=== PATIENT | female | born 1985 | race Caucasian/White ===

== ENCOUNTER 2017-05-04 17:45 | Inpatient (IN) | payer OTHER ==
[2017-05-04 20:14] LABS: RETICULOCYTES 2.09 % (0.5-1.5)
[2017-05-04 20:15] LABS: BASO % 0.3 % (0-2.0); EOS % 0.9 % (0-4.5); HEMATOCRIT 33.6 % (32.4-45.2); HEMOGLOBIN 11.6 GM/dL (10.7-15.3); LYMPH % 14.4 % (8-40); MCH 27.9 pg (25.7-33.7); MCHC 34.6 g/dl (32.0-36.0); MEAN CELL VOLUME 80.6 fl (80-96); MEAN PLT VOLUME 11.2 fl (7.5-11.1); MONO % 9.5 % (3.8-10.2); NEUT % 74.9 % (42.8-82.8); PLATELET COUNT 165 K/MM3 (134-434); RBC 4.16 M/mm3 (3.60-5.2); RDW 14.9 % (11.6-15.6); WHITE BLOOD COUNT 9.4 K/mm3 (4.0-10.0)
[2017-05-04 20:27] LABS: URINE APPEARANCE CLEAR; URINE BILIRUBIN NEGATIVE (<2.0 mg/dL); URINE BLOOD NEGATIVE (NEGATIVE); URINE COLOR YELLOW; URINE GLUCOSE (UA) NEGATIVE (NEGATIVE); URINE KETONE NEGATIVE (NEGATIVE); URINE LEUK ESTERASE NEGATIVE (NEGATIVE); URINE NITRITE NEGATIVE (NEGATIVE); URINE UROBILINOGEN NEGATIVE mg/dL (0.2-1.0)
[2017-05-04 20:28] LABS: URINE PROTEIN 2+ (NEGATIVE)
[2017-05-04 20:37] LABS: INR 0.93 (0.82-1.09); PROTHROMBIN TIME (PATIENT) 10.5 SEC (9.98-11.88)
[2017-05-04 20:40] LABS: ACTIVATED PTT 27.5 SECONDS (26.9-34.4)
[2017-05-04 20:48] LABS: EPI CELLS RARE /HPF (FEW); URINE HYALINE CAST 1 /lpf; URINE MUCUS RARE
[2017-05-04 21:00] LABS: ALBUMIN 2.9 g/dl (3.4-5.0); ALK PHOS 183 U/L (45-117); ANION GAP 10 (8-16); BILIRUBIN,TOTAL 0.2 mg/dL (0.2-1.0); BLOOD UREA NITROGEN 12 mg/dL (7-18); CALCIUM 8.4 mg/dL (8.5-10.1); CHLORIDE 108 mmol/L (98-107); CO2 21 mmol/L (21-32); CREATININE 0.3 mg/dL (0.55-1.02); GAMMA GLUTAMYL TRANSPEPTIDASE 46 U/L (5-85); GLUCOSE,RANDOM 80 mg/dL (74-106); SGOT/AST 94 U/L (15-37); SGPT/ALT 64 U/L (12-78); SODIUM 139 mmol/L (136-145); TOT PROT 6.9 g/dl (6.4-8.2)
[2017-05-04 22:08] VITALS: BMI 45.1
[2017-05-04] MEDS ORDERED: BUTORPHANOL TARTRATE 1 MG/ML VIAL IVPUSH PRN (22:12)
[2017-05-04] MEDS ORDERED: DINOPROSTONE 10 MG VAGINAL SUPPOSITORY VG ONE (22:12)
[2017-05-04] MEDS ORDERED: PROMETHAZINE HCL 25 MG/1 ML VIAL IVPUSH ONE (22:12)
--- NOTE | 2017-05-04 22:18 | HP ---
Past Medical History - Primary Care Physician PCP:: Timmy Reyes - Admission Chief Complaint: 37 weeks, PIH , for cervidil induction History of Present Illness: 31 yo f edc by sono 05/20/17 , 37,5 weeks, with 2+ protein in urine and elevated LFT , bp 125/68, admitted for cervidil induction, cx 1 to 2 cm, 50 vx - 2 mi, fhr cat 1,, rba to induction discussed with patient History Source: Patient Limitations to Obtaining History: No Limitations - Past Medical History ...: 2 ...Para: 1 ...Term: 1 ...: 1 ...Spon : 0 ...Induced : 0 ...Multiple Gestation: 0 ...LMP: 08/13/16 ... Weeks Gestation by Dates: 37.5 ...EDC by Dates: 05/20/17 ...EDC by Sono: 05/20/17 - Past Surgical History Hx Myomectomy: No Hx Transabdominal Cerclage: No - Smoking History Smoking history: Never smoked Have you smoked in the past 12 months: No - Alcohol/Substance Use Hx Alcohol Use: No - Social History Usual Living Arrangement: Yes: With Spouse History of Recent Travel: No Home Medications - Allergies Allergies/Adverse Reactions: Allergies Allergy/AdvReac Type Severity Reaction Status Date / Time No Known Allergies Allergy Verified 05/04/17 18:21 - Home Medications Home Medications: Ambulatory Orders Ferrous Sulfate [Iron] 325 mg PO DAILY 05/04/17 Pnv No.95/Ferrous Fum/Folic AC [ Multivitamin Tablet] 1 each PO DAILY Review of Systems - Review of Systems Constitutional: reports: No Symptoms Eyes: reports: No Symptoms HENT: reports: No Symptoms Neck: reports: No Symptoms Cardiovascular: reports: No Symptoms Respiratory: reports: No Symptoms Gastrointestinal: reports: No Symptoms Genitourinary: reports: No Symptoms Breasts: reports: No Symptoms Reported Musculoskeletal: reports: No Symptoms Integumentary: reports: No Symptoms Neurological: reports: No Symptoms Endocrine: reports: No Symptoms Hematology/Lymphatic: reports: No Symptoms Psychiatric: reports: No Symptoms Physical Exam - Maternity Vital Signs: Vital Signs Temperature 99.0 F 05/04/17 21:30 Pulse Rate 88 05/04/17 21:30 Respiratory Rate 18 05/04/17 21:30 Blood Pressure 124/77 05/04/17 21:30 O2 Sat by Pulse Oximetry (%) Constitutional: Yes: Well Nourished, No Distress, Calm Eyes: Yes: WNL, Conjunctiva Clear, EOM Intact HENT: Yes: WNL, Atraumatic, Normocephalic Neck: Yes: WNL, Supple, Trachea Midline Cardiovascular: Yes: WNL, Regular Rate and Rhythm Breast(s): Yes: WNL - Abdominal Exam/OB Fundal Height: 38 Number of Fetuses: Single Presentation: Vertex Contractions: No Intensity: Unaware Monitor Mode: External Heart Rate Location: [facility] Category: I Accelerations: Uniform Decelerations: None - Vaginal Exam/OB Vaginal Bleediing: No Speculum Exam: No Dilatation (cm): 2 cm Effacement (%): 50 Amniotic Membrane Status: Intact Presentation: Vertex/Position Station: -2 - Physical Exam Musculoskeletal: Yes: Back Pain Edema: Yes Edema: LLE: 1+, RLE: 1+ Deep Tendon Reflex Grade: Normal +2 - Labs Lab Results: CBC, BMP 05/04/17 19:30 05/04/17 19:30 Hemorrhage Risk Assessment - Risk Factors Medium Risk Factors: Yes: None High Risk Factors: Yes: None Risk Score: 1 Risk Level: Medium Risk Problem List - Problems (1) with 37 weeks completed gestation Code(s): Z3A.37 - 37 WEEKS GESTATION OF (2) induced hypertension Code(s): O13.9 - GESTATIONAL HTN W/O SIGNIFICANT PROTEINURIA, UNSP TRIMESTER Qualifiers: Trimester: third trimester Qualified Code(s): O13.3 - Gestational [ -induced] hypertension without significant proteinuria, third trimester (3) HELLP (hemolytic anemia/elev liver enzymes/low platelets in ) Code(s): O14.20 - HELLP SYNDROME (HELLP), UNSPECIFIED TRIMESTER Qualifiers: Trimester: third trimester Qualified Code(s): O14.23 - HELLP syndrome ( HELLP), third trimester Assessment/Plan admit for cervidil induction, rba discussed
[2017-05-05] MEDS ORDERED: AMPICILLIN SODIUM 2 GM VIAL ONE (05:45)
[2017-05-05] MEDS: DEXTROSE 5%-LACTATED RINGERS 1,000 ML IV SCH ×2 (06:00→14:35)
[2017-05-05] MEDS ORDERED: AMPICILLIN - 2 GM in SODIUM CHLORIDE 100 ML IVPB ONE (06:00)
--- NOTE | 2017-05-05 07:52 | PN ---
Progress Note (short form) - Note Progress Note: cx 3 cm 70 vx -2 mi, fhr cat 1, no headache, no blurred vision Last Vital Signs Temp Pulse Resp BP Pulse Ox 98.2 F 85 20 118/78 05/05/17 06:00 05/05/17 07:00 05/05/17 07:00 05/05/17 07:00 Problem List - Problems (1) with 37 weeks completed gestation Code(s): Z3A.37 - 37 WEEKS GESTATION OF (2) induced hypertension Code(s): O13.9 - GESTATIONAL HTN W/O SIGNIFICANT PROTEINURIA, UNSP TRIMESTER Qualifiers: Trimester: third trimester Qualified Code(s): O13.3 - Gestational [ -induced] hypertension without significant proteinuria, third trimester (3) HELLP (hemolytic anemia/elev liver enzymes/low platelets in ) Code(s): O14.20 - HELLP SYNDROME (HELLP), UNSPECIFIED TRIMESTER Qualifiers: Trimester: third trimester Qualified Code(s): O14.23 - HELLP syndrome ( HELLP), third trimester
[2017-05-05] MEDS: AMPICILLIN - 1 GM in SODIUM CHLORIDE 100 ML IVPB SCH ×4 (10:00→22:08)
[2017-05-05] MEDS ORDERED: OXYTOCIN 20 UNITS in 0.9% NS 20 UNIT/1,000 ML INFUS.BAG IV ONE (11:13)
[2017-05-05] MEDS ORDERED: OXYTOCIN 30 UNITS in 0.9% NS 30 UNIT/500 ML INFUS.BAG IVPB SCH (12:20)
--- NOTE | 2017-05-05 15:10 | PN ---
Progress Note (short form) - Note Progress Note: cx 3 to 4 cm 70 vx -2 mr, fhr cat 1 Last Vital Signs Temp Pulse Resp BP Pulse Ox 98.7 F 87 20 124/69 05/05/17 12:00 05/05/17 13:00 05/05/17 13:00 05/05/17 13:00 plan cont pitocin, ,fhm Problem List - Problems (1) with 37 weeks completed gestation Code(s): Z3A.37 - 37 WEEKS GESTATION OF (2) induced hypertension Code(s): O13.9 - GESTATIONAL HTN W/O SIGNIFICANT PROTEINURIA, UNSP TRIMESTER Qualifiers: Trimester: third trimester Qualified Code(s): O13.3 - Gestational [ -induced] hypertension without significant proteinuria, third trimester (3) HELLP (hemolytic anemia/elev liver enzymes/low platelets in ) Code(s): O14.20 - HELLP SYNDROME (HELLP), UNSPECIFIED TRIMESTER Qualifiers: Trimester: third trimester Qualified Code(s): O14.23 - HELLP syndrome ( HELLP), third trimester
--- NOTE | 2017-05-05 19:13 | PN ---
Progress Note (short form) - Note Progress Note: Patient transferred for labor management by Dr Reyes to Dr jimenez . 31 yrs 37.6 weeks s/p 12 hrs of Cervidil induction followed by Pitocin induction, started at 12.20 PM , Arom at 12.00 Noon Pitocin 6miu/min Indication for induction : Preclempsia , urine protein 2+, Liver Enz elevated , AST 94, ALT 64, , Plt 165. BP wnl . 04/27/17 sono SLIUP Vx, GARRETT 11.0, EFW6'13", BPP 8/8 Gbs pos , receiving IV Ampicillin prophylaxis uc are still mild irregular 3-5 min , FHR 150-160 cat-1 pelvic exam: 3-4 cm/75%/MR/vX -1 /pelvis adequate . Morbidly Obese , 247 Lbs , BMI 45.[address] pitocin induction stadol + phenrgan prn for labor analgesia ct trial of labor Selected Entries 05/05/17 18:00 Temperature 98.2 F Pulse Rate 82 Blood Pressure 113/71 Laboratory Tests 05/04/17 05/04/17 05/04/17 19:30 19:30 19:30 WBC 9.4 Hgb 11.6 Hct 33.6 Plt Count 159 Neutrophils % 74.9 Lymphocytes % 14.4 Retic Count 2.09 H PT with INR INR PTT (Actin FS) Sodium 139 Potassium 4.0 Chloride 108 H Carbon Dioxide 21 BUN 12 Creatinine 0.3 L Random Glucose 80 Calcium 8.4 L Total Bilirubin 0.2 GGT 46 AST 94 H ALT 64 Urine Protein RPR Titer Blood Type Antibody Screen 05/04/17 05/04/17 05/04/17 19:30 19:30 19:30 WBC Hgb Hct Plt Count Neutrophils % Lymphocytes % Retic Count PT with INR 10.50 INR 0.93 PTT (Actin FS) 27.5 Sodium Potassium Chloride Carbon Dioxide BUN Creatinine Random Glucose Calcium Total Bilirubin GGT AST ALT Urine Protein RPR Titer Nonreactive Blood Type O POSITIVE Antibody Screen Negative 05/04/17 20:10 WBC Hgb Hct Plt Count Neutrophils % Lymphocytes % Retic Count PT with INR INR PTT (Actin FS) Sodium Potassium Chloride Carbon Dioxide BUN Creatinine Random Glucose Calcium Total Bilirubin GGT AST ALT Urine Protein 2+ H RPR Titer Blood Type Antibody Screen
[2017-05-05] MEDS ORDERED: BUTORPHANOL TARTRATE 1 MG/ML VIAL ONE ×2 (21:56)
[2017-05-05] MEDS ORDERED: PROMETHAZINE HCL 25 MG/1 ML VIAL ONE (21:56)
[2017-05-05] MEDS ORDERED: BUTORPHANOL TARTRATE 1 MG/ML VIAL IVPUSH PRN (21:58)
--- NOTE | 2017-05-05 22:02 | PN ---
Progress Note, Labor Vaginal Exam #1 Labor Exam Date: 05/05/17 Labor Exam Time: 21:50 Heart Rate (range): 130 Dilatation: 6-7 Effacement (%): 90 Amniotic Membrane Status: Ruptured Presentation: Vertex/Position Station: 0 Remarks: fhr cat-1 uc 2-4 min requests for pain meds rx iv stadol 2mg + phenrgan 25 mg Selected Entries 05/05/17 22:00 Temperature 98.9 F Pulse Rate 89 Blood Pressure 131/73 Vaginal Exam #2 Labor Exam Date: 05/05/17 Labor Exam Time: 23:00 Heart Rate (range): 130 Dilatation: 10 Effacement (%): 100 Amniotic Membrane Status: Ruptured Presentation: Vertex/Position Station: +3 Remarks: fhr cat-1 uc q2 min pt pushing 23.08 hr
[2017-05-05] MEDS ORDERED: AMPICILLIN SODIUM 1 GM VIAL ONE (22:04)
[2017-05-05] MEDS ORDERED: oxyCODONE HCL 5 MG TABLET PO PRN (23:33)
[2017-05-05] MEDS ORDERED: METHYLERGONOVINE MALEATE 0.2 MG/1 ML AMP IM PRN (23:33)
[2017-05-05] MEDS ORDERED: BISACODYL 10 MG SUPP.RECT RC PRN (23:33)
[2017-05-05] MEDS ORDERED: WITCH HAZEL 50% (TUCKS) 40 PAD/JAR PAD TP PRN (23:33)
[2017-05-05] MEDS ORDERED: BENZOCAINE 28 GM HEMORRHOIDAL OINTMENT TP PRN (23:33)
[2017-05-05] MEDS ORDERED: IBUPROFEN 600 MG TABLET (FP) PO PRN (23:33)
[2017-05-05] MEDS ORDERED: ACETAMINOPHEN 325 MG TABLET (FP) PO PRN (23:33)
[2017-05-05] MEDS ORDERED: BENZOCAINE 20% 57 GM BOTTLE TP PRN (23:33)
--- NOTE | 2017-05-05 23:33 | PN ---
Delivery - Delivery Vaginal Delivery: No Problems, Spontaneous (baby deivered in OA position, immediate oral & nasal suction was done ..perineum intact) Episiotomy/Laceration: None EBL (cc): 300 Delivery, Single - Stages of Labor Date 1st Stage Initiatied: 05/05/17 Time 1st Stage Initiated: 12:00 Date 2nd Stage Initiated: 05/05/17 Time 2nd Stage Initiated: 23:00 Date of Delivery: 05/05/17 Time of Delivery: 23:08 Date Placenta Delivered: 05/05/17 Time Placenta Delivered: 23:12 Placenta: Yes: Spontaneous, Uterine Exploration - Condition of Infant Infant Gender: Female Weight: 7 lb Position: Left, OA Total Hours ROM (Hrs/Mins): 96kby80 min - 1 Minute Total Score: 9 5 Minutes Total Score: 9 - Atkins Feeding Plan Initial Plan: Elected not to breastfeed exclusively throughout hospitalization Remarks - Remarks Remarks: 31 yrs , 37.6 weeks admitted for induction of labor , due to preclempsia ( urine protein 2+ & elevated Liver enz ) by Dr Reyes gbs pos rx Iv Ampicillin x5 doses cervidil induction on 05/04/17 followed by pitocin induction on 05/05/17 stadol 2gm + phenrgan 25 mg iv one dose for labor analgesia was given Intrapartum course uneventful
[2017-05-05] MEDS ORDERED: OXYTOCIN 20 UNITS in 0.9% NS 20 UNIT/1,000 ML INFUS.BAG IV SCH (23:45)
[2017-05-06] MEDS ORDERED: OXYTOCIN 20 UNITS in 0.9% NS 20 UNIT/1,000 ML INFUS.BAG IV ONE (00:14)
[2017-05-06] MEDS: AMPICILLIN - 1 GM in SODIUM CHLORIDE 100 ML IVPB SCH (02:28)
--- NOTE | 2017-05-06 07:31 | PN ---
Post Progress Note - Subjective Subjective: c/o cramps tired Post Day: 1 Type of Delivery: Vital Signs: Vital Signs Temperature 99.0 F 05/06/17 06:00 Pulse Rate 82 05/06/17 06:00 Respiratory Rate 20 05/06/17 06:00 Blood Pressure 116/67 05/06/17 06:00 O2 Sat by Pulse Oximetry (%) 100 05/06/17 00:00 Breast Exam: Yes: Soft, Other (plans to BF ). No: Engorged Uterus: Yes: Fundus Firm, Fundus below umbilicus Lochia: Yes: Rubra Lochia, amount: Moderate Extremities: Yes: Calves non-tender, Edema (1+/1+) Perineum: Yes: Intact Activity: Ambulating - Labs Labs: CBC WBC 9.4 K/mm3 (4.0-10.0) 05/04/17 19:30 RBC 4.16 M/mm3 (3.60-5.2) 05/04/17 19:30 Hgb 11.6 GM/dL (10.7-15.3) 05/04/17 19:30 Hct 33.6 % (32.4-45.2) 05/04/17 19:30 MCV 80.6 fl (80-96) 05/04/17 19:30 MCH 27.9 pg (25.7-33.7) 05/04/17 19:30 MCHC 34.6 g/dl (32.0-36.0) 05/04/17 19:30 RDW 14.9 % (11.6-15.6) 05/04/17 19:30 Plt Count 165 K/MM3 (134-434) 05/04/17 19:30 MPV 11.2 fl (7.5-11.1) H 05/04/17 19:30 Neutrophils % 74.9 % (42.8-82.8) 05/04/17 19:30 Lymphocytes % 14.4 % (8-40) 05/04/17 19:30 Monocytes % 9.5 % (3.8-10.2) 05/04/17 19:30 Eosinophils % 0.9 % (0-4.5) 05/04/17 19:30 Basophils % 0.3 % (0-2.0) 05/04/17 19:30 Retic Count 2.09 % (0.5-1.5) H 05/04/17 19:30 Assessment/Plan stable. plan repeat cbc & urine protein today
[2017-05-06 07:53] LABS: BASO % 0.3 % (0-2.0); EOS % 0.2 % (0-4.5); HEMATOCRIT 32.8 % (32.4-45.2); HEMOGLOBIN 11.1 GM/dL (10.7-15.3); MCH 27.3 pg (25.7-33.7); MCHC 33.9 g/dl (32.0-36.0); MEAN CELL VOLUME 80.7 fl (80-96); MEAN PLT VOLUME 10.5 fl (7.5-11.1); MONO % 9.9 % (3.8-10.2); NEUT % 72.6 % (42.8-82.8); PLATELET COUNT 158 K/MM3 (134-434); RBC 4.07 M/mm3 (3.60-5.2); RDW 15.1 % (11.6-15.6); WHITE BLOOD COUNT 10.4 K/mm3 (4.0-10.0)
[2017-05-06] MEDS: FERROUS SO4 325 MG TABLET (FP) PO SCH ×2 (09:01→18:08)
[2017-05-06] MEDS: PRENATAL VITAMINS W/ FOLIC ACID TABLET (FP) PO SCH (09:01)
[2017-05-06] MEDS ORDERED: DIPHTH,PERTUSS(ACELL),TET 0.5 ML DISP.SYRIN IM ONE (10:00)
[2017-05-06 14:39] LABS: RATIO URIN PROTEIN/URIN CREAT 0.45 MG/DL
[2017-05-06] MEDS ORDERED: SENNOSIDES/DOCUSATE COMBO (SENNA PLUS) TABLET (UD) PO PRN (22:00)
[2017-05-07 08:10] VITALS: BP 115/74; PULSE 79; TEMP 98.3
[2017-05-07] MEDS: FERROUS SO4 325 MG TABLET (FP) PO SCH (09:48)
[2017-05-07] MEDS: PRENATAL VITAMINS W/ FOLIC ACID TABLET (FP) PO SCH (09:49)
--- NOTE | 2017-05-07 09:59 | DS ---
Physical Exam-MEMBER SERVICE REPRESENTATIVE Vital Signs: Vital Signs Temperature 98.3 F 05/07/17 08:09 Pulse Rate 79 05/07/17 08:09 Respiratory Rate 18 05/07/17 08:09 Blood Pressure 115/74 05/07/17 08:09 O2 Sat by Pulse Oximetry (%) 100 05/06/17 00:00 Constitutional: Yes: Well Nourished, Obese, Other (no c/o headache or dizziness) Eyes: Yes: WNL HENT: Yes: WNL, Normocephalic Neck: Yes: WNL Cardiovascular: Yes: WNL, Regular Rate and Rhythm Respiratory: Yes: WNL, CTA Bilaterally Gastrointestinal: Yes: WNL ...Rectal Exam: Yes: WNL Renal/: Yes: WNL Pelvis: Yes: WNL ....Post : Yes: Uterus firm, Uterus non-tender, Moderate lochia rubra ( perineum intact) Breast(s): Yes: WNL (attempting BF) Musculoskeletal: Yes: WNL Extremities: Yes: WNL. No: Calf Tenderness Edema: Yes Edema: LLE: 1+, RLE: 1+ Integumentary: Yes: WNL Neurological: Yes: WNL, Alert, Oriented ...Motor Strength: WNL Psychiatric: Yes: WNL, Alert, Oriented Labs: CBC, BMP 05/06/17 07:00 05/04/17 19:30 Laboratory Tests 05/04/17 05/06/17 20:10 13:14 Urine Protein 2+ H U Random Total Protein 111 H Urine Creatinine 244.0 Protein/Creatinin Ratio 0.45 Delivery - Delivery Vaginal Delivery: No Problems, Spontaneous (baby deivered in OA position, immediate oral & nasal suction was done ..perineum intact) Type of Anesthesia: None Episiotomy/Laceration: None EBL (cc): 300 Delivery, Single - Stages of Labor Date 1st Stage Initiatied: 05/05/17 Time 1st Stage Initiated: 12:00 Date 2nd Stage Initiated: 05/05/17 Time 2nd Stage Initiated: 23:00 Date of Delivery: 05/05/17 Time of Delivery: 23:08 Time Placenta Delivered: 23:12 Placenta: Yes: Spontaneous, Uterine Exploration - Condition of Curve Cleaner/Pumper Gauger Apprentice Present: No Infant Gender: Female Weight: 7 lb Position: Left, OA Total Hours ROM (Hrs/Mins): 75ycx97 min - 1 Minute Total Score: 9 5 Minutes Total Score: 9 - Feeding Plan Initial Plan: Elected not to breastfeed exclusively throughout hospitalization Remarks - Remarks Remarks: 31 yrs , 37.6 weeks admitted for induction of labor , due to preclempsia ( urine protein 2+ & elevated Liver enz ) by Dr Reyes gbs pos rx Iv Ampicillin x5 doses cervidil induction on 05/04/17 followed by pitocin induction on 05/05/17 stadol 2gm + phenrgan 25 mg iv one dose for labor analgesia was given Intrapartum course uneventful pp course uneventful discharge 05/07/17 Discharge Summary Reason For Visit: ADMIT LABOR Current Active Problems HELLP (hemolytic anemia/elev liver enzymes/low platelets in ) (Acute) induced hypertension (Acute) with 37 weeks completed gestation (Acute) - Instructions Referrals: Carlotta Chan MD [Staff Physician] - - Home Medications Comprehensive Discharge Medication List: Ambulatory Orders Ferrous Sulfate [Iron] 325 mg PO DAILY 05/04/17 Pnv No.95/Ferrous Fum/Folic AC [ Multivitamin Tablet] 1 each PO DAILY
== END 2017-05-07 12:20 | disposition home or self-care (01) | DRG 560 ==
LOC: JDEL 17:45 → JLDR 21:30 → J3W 05-06 01:57
PROVIDERS: ADMIT Obstetrics & Gynecology; ATTEND Obstetrics & Gynecology
PROC: 10E0XZZ Delivery of Products of Conception, External Approach (ICD-10-PCS; principal; 2017-05-05)
DX: O13.4 Gestational [pregnancy-induced] hypertension without significant proteinuria, complicating childbirth (principal); Z68.42 Body mass index [BMI] 45.0-49.9, adult; E66.01 Morbid (severe) obesity due to excess calories; O14.24 HELLP syndrome, complicating childbirth; O99.214 Obesity complicating childbirth; O14.94 Unspecified pre-eclampsia, complicating childbirth; Z3A.37 37 weeks gestation of pregnancy; Z37.0 Single live birth
CPT/HCPCS: 36415; 59409; 80053; 81003; 81015; 82570; 82977; 83010; 84156; 85025; 85032; 85044; 85610; 85730; 86593; 86850; 86900; 86901; 90715

== ENCOUNTER 2018-01-07 01:50 | Emergency (ER) | payer OTHER ==
--- NOTE | 2018-01-07 01:58 | PDOC ---
Attending Attestation - Resident Resident Name: Flaquita Matias - ED Attending Attestation I have performed the following: I have examined & evaluated the patient, The case was reviewed & discussed with the resident, I agree w/resident's findings & plan - HPI HPI: 01/07/18 02:31 10 weeks and now with vag bleeding x 1 day. Pt has no cramps and no other complaints. - Physicial Exam PE: 01/07/18 02:32 Agree with resident. - Medical Decision Making 01/07/18 02:32 Pt will have labs and hcg and blood type sent. 01/07/18 02:33 Blood type is Opositive 01/07/18 03:12 CBC normal; UA has no infection SHe has 2+ blood and 1+ protein Chem pending 01/07/18 05:50 Chem normal. Pt will be signed out to the day team for a sono for threatened .
--- NOTE | 2018-01-07 01:58 | PDOC ---
History of Present Illness - General Stated Complaint: VAGINAL BLEEDING Time Seen by Provider: 01/07/18 01:57 History Source: Patient - History of Present Illness Initial Comments: 01/07/18 02:20 The patient is a 32 year old female at a self reported 10 weeks gestation and a PMH of pre-eclampsia and HELLP syndrome who presents to the ED c/o vaginal bleeding. Patient states she woke up this evening to go to the bathroom and she noticed blood when she urinated, small clots on toilet paper when she wiped. Evaluated by OB-Well Service Pump Equipment Operator earlier this week at which time urine showed 2+ proteinuria. No sono in this . 10 point ROS is negative including chest pain, shortness of breath, abdominal cramping, nausea/vomiting, diarrhea/constipation. NKDA Surgical: denies Social: denies toxic habits OB-Well Service Pump Equipment Operator: Dr. Tia Hart M.D. As per EMR, patient was evaluated for pre-eclampsia and labor induction in 2017 of this year. Past History - Past Medical History Allergies/Adverse Reactions: Allergies Allergy/AdvReac Type Severity Reaction Status Date / Time No Known Allergies Allergy Verified 01/07/18 02:01 Home Medications: Ambulatory Orders Ferrous Sulfate [Iron] 325 mg PO DAILY 05/04/17 Pnv No.95/Ferrous Fum/Folic AC [ Multivitamin Tablet] 1 each PO DAILY Asthma: No Cancer: No Cardiac Disorders: No Diabetes: No HTN: No Seizures: No Thyroid Disease: No - Suicide/Smoking/Psychosocial Hx Smoking History: Never smoked Have you smoked in the past 12 months: No Hx Alcohol Use: No Drug/Substance Use Hx: No Hx Substance Use Treatment: No Review of Systems - Review of Systems Constitutional: No: Chills, Fever HEENTM: No: Blurred Vision, Recent change in vision Respiratory: No: Cough, Shortness of Breath Cardiac (ROS): No: Chest Pain, Lightheadedness, Palpitations, Syncope ABD/GI: No: Constipated, Diarrhea, Nausea, Vomiting : Yes: Other (vaginal bleeding) Neurological: No: Headache *Physical Exam - Physical Exam General Appearance: Yes: Nourished, Appropriately Dressed HEENT: positive: Normal Voice, Hearing Grossly Normal Neck: positive: Trachea midline, Supple Respiratory/Chest: positive: Lungs Clear, Normal Breath Sounds. negative: Labored Respiration, Rapid RR Cardiovascular: positive: S1, S2. negative: Edema Gastrointestinal/Abdominal: positive: Normal Bowel Sounds, Soft. negative: Rebound, Tenderness, Hernia, Mass Musculoskeletal: negative: CVA Tenderness (R), CVA Tenderness (L) Extremity: positive: Normal Capillary Refill, Normal Inspection Integumentary: positive: Normal Color, Dry, Warm Neurologic: positive: Fully Oriented, Alert ED Treatment Course - LABORATORY CBC & Chemistry Diagram: 01/07/18 02:44 01/07/18 02:44 Medical Decision Making - Medical Decision Making 01/07/18 02:48 32 year old @ self-reported 10 weeks gestation who presents with vaginal bleeding. Initally hypertensive (SBP 150's), repeat BP 130's/90's. Frontal diagnosis: threatened AB, spontaneous AB, ectopic . Will obtain TVUS, basic lab, pelvic exam, B-HCG, UA for proteinuria. No need for T&S as patient has previous deliveries at our institution with O+ documented in EMR. Reassess. 01/07/18 05:48 Pelvic exam shows closed cervical os with blood clots in vaginal vault Hb 12.1 Elevated LFT's: AST 98, ALT 53 - c/w h/o HEELP Patient to go for TVUS @ 0800 01/07/18 06:48 UA shows 2+ blood, nitrite (-), leukocyte esterase (-), 1 WBC, rare bacteria, rare epithelial cells - no abx indicated Patient reassessed @ bedside, continues to c/o vaginal bleeding however states it less than prior to presentation. Patient to be signed out to day team, TVUS pending. 01/07/18 07:14 Patient signed out to Dr. Price (Resident) and Dr. Wagoner (Attending). TVUS pending, if SAB will d/c home with counseling for close OB follow-up and return precautions. *DC/Admit/Observation/Transfer Diagnosis at time of Disposition: Vaginal bleeding in patient at less than 20 weeks gestation - Referrals Referrals: Tomeka Lu MD [Primary Care Provider] - - Patient Instructions - Post Discharge Activity
[2018-01-07 02:02] VITALS: BP 151/93; PULSE 90; TEMP 98.9; BMI 43.0
[2018-01-07 02:52] LABS: BASO % 0.5 % (0-2.0); EOS % 2.2 % (0-4.5); HEMATOCRIT 35.9 % (32.4-45.2); HEMOGLOBIN 12.7 GM/dL (10.7-15.3); LYMPH % 29.6 % (8-40); MCH 28.2 pg (25.7-33.7); MCHC 35.2 g/dl (32.0-36.0); MEAN CELL VOLUME 79.9 fl (80-96); MEAN PLT VOLUME 9.6 fl (7.5-11.1); MONO % 7.6 % (3.8-10.2); NEUT % 60.1 % (42.8-82.8); PLATELET COUNT 184 K/MM3 (134-434); RBC 4.49 M/mm3 (3.60-5.2); RDW 13.3 % (11.6-15.6); WHITE BLOOD COUNT 8.1 K/mm3 (4.0-10.0)
[2018-01-07 02:54] LABS: URINE APPEARANCE CLEAR; URINE BILIRUBIN NEGATIVE (<2.0 mg/dL); URINE COLOR STRAW; URINE GLUCOSE (UA) NEGATIVE (NEGATIVE); URINE KETONE NEGATIVE (NEGATIVE); URINE LEUK ESTERASE NEGATIVE (NEGATIVE); URINE NITRITE NEGATIVE (NEGATIVE); URINE PROTEIN 1+ (NEGATIVE); URINE UROBILINOGEN NEGATIVE mg/dL (0.2-1.0)
[2018-01-07 02:58] LABS: EPI CELLS RARE /HPF (FEW); URINE BACTERIA RARE /hpf (NONE SEEN); URINE MUCUS RARE
[2018-01-07 03:14] LABS: ALBUMIN 3.9 g/dl (3.4-5.0); ALK PHOS 75 U/L (45-117); ANION GAP 9 MMOL/L (8-16); BILIRUBIN,TOTAL 0.3 mg/dL (0.2-1); BLOOD UREA NITROGEN 10 mg/dL (7-18); CALCIUM 8.8 mg/dL (8.5-10.1); CHLORIDE 108 mmol/L (98-107); CO2 23 mmol/L (21-32); CREATININE 0.4 mg/dL (0.55-1.3); GLUCOSE,RANDOM 109 mg/dL (74-106); POTASSIUM 3.8 mmol/L (3.5-5.1); SGOT/AST 53 U/L (15-37); SGPT/ALT 98 U/L (13-61); SODIUM 140 mmol/L (136-145); TOT PROT 7.4 g/dl (6.4-8.2)
--- NOTE | 2018-01-07 09:07 | PDOC ---
*Physical Exam - Vital Signs Last Vital Signs Temp Pulse Resp BP Pulse Ox 98.9 F 90 18 151/93 98 01/07/18 01:59 01/07/18 01:59 01/07/18 01:59 01/07/18 01:59 01/07/18 01:59 - Physical Exam Comments: 01/07/18 09:25 General Appearance: Nourished. No Apparent Distress HEENT: No Pharyngeal Erythema, Tonsillar Exudate, Tonsillar Erythema Neck: No Cervical Lymphadenopathy Respiratory/Chest: Lungs Clear, Normal Breath Sounds. No Crackles, Rales, Rhonchi, Wheezing Cardiovascular: Regular Rhythm, Regular Rate. No Murmur, Gallops, Rubs Gastrointestinal/Abdominal: Normal Bowel Sounds, Soft. No Guarding, Rebound, Tenderness Musculoskeletal: No CVA Tenderness Extremity: Normal Capillary Refill Integumentary: Normal Color, Dry, Warm Neurologic: Fully Oriented, Alert, Normal Mood/Affect, Normal Response, <Karan Price - Last Filed: 01/07/18 09:25> - Vital Signs Last Vital Signs Temp Pulse Resp BP Pulse Ox 98.9 F 90 18 151/93 98 01/07/18 01:59 01/07/18 01:59 01/07/18 01:59 01/07/18 01:59 01/07/18 01:59 <Kezia Wagoner - Last Filed: 01/07/18 09:52> ED Treatment Course - LABORATORY CBC & Chemistry Diagram: 01/07/18 02:44 01/07/18 02:44 - ADDITIONAL ORDERS Additional order review: Laboratory Results 01/07/18 01/07/18 01/07/18 02:44 02:44 02:44 Sodium 140 Potassium 3.8 Chloride 108 H Carbon Dioxide 23 Anion Gap 9 BUN 10 Creatinine 0.4 L Creat Clearance w eGFR > 60 Random Glucose 109 H Calcium 8.8 Total Bilirubin 0.3 AST 53 H ALT 98 H Alkaline Phosphatase 75 Total Protein 7.4 Albumin 3.9 Beta HCG, Quant 4992.4 Serum , Qual Urine Color Straw Urine Appearance Clear Urine pH 7.0 Ur Specific [place] 1.008 L Urine Protein 1+ H Urine Glucose (UA) Negative Urine Ketones Negative Urine Blood 2+ H Urine Nitrite Negative Urine Bilirubin Negative Urine Urobilinogen Negative Ur Leukocyte Esterase Negative Urine WBC (Auto) 1 Urine RBC (Auto) 1 Ur Epithelial Cells Rare Urine Bacteria Rare Urine Mucus Rare Blood Type O POSITIVE Antibody Screen Negative 01/07/18 02:44 Sodium Potassium Chloride Carbon Dioxide Anion Gap BUN Creatinine Creat Clearance w eGFR Random Glucose Calcium Total Bilirubin AST ALT Alkaline Phosphatase Total Protein Albumin Beta HCG, Quant Serum , Qual Positive Urine Color Urine Appearance Urine pH Ur Specific [place] Urine Protein Urine Glucose (UA) Urine Ketones Urine Blood Urine Nitrite Urine Bilirubin Urine Urobilinogen Ur Leukocyte Esterase Urine WBC (Auto) Urine RBC (Auto) Ur Epithelial Cells Urine Bacteria Urine Mucus Blood Type Antibody Screen 01/07/18 02:44 RBC 4.49 MCV 79.9 L MCHC 35.2 RDW 13.3 D MPV 9.6 Neutrophils % 60.1 Lymphocytes % 29.6 D Monocytes % 7.6 Eosinophils % 2.2 D Basophils % 0.5 <Karan Price - Last Filed: 01/07/18 09:25> - LABORATORY CBC & Chemistry Diagram: 01/07/18 02:44 01/07/18 02:44 - ADDITIONAL ORDERS Additional order review: Laboratory Results 01/07/18 01/07/18 01/07/18 02:44 02:44 02:44 Sodium 140 Potassium 3.8 Chloride 108 H Carbon Dioxide 23 Anion Gap 9 BUN 10 Creatinine 0.4 L Creat Clearance w eGFR > 60 Random Glucose 109 H Calcium 8.8 Total Bilirubin 0.3 AST 53 H ALT 98 H Alkaline Phosphatase 75 Total Protein 7.4 Albumin 3.9 Beta HCG, Quant 4992.4 Serum , Qual Urine Color Straw Urine Appearance Clear Urine pH 7.0 Ur Specific [place] 1.008 L Urine Protein 1+ H Urine Glucose (UA) Negative Urine Ketones Negative Urine Blood 2+ H Urine Nitrite Negative Urine Bilirubin Negative Urine Urobilinogen Negative Ur Leukocyte Esterase Negative Urine WBC (Auto) 1 Urine RBC (Auto) 1 Ur Epithelial Cells Rare Urine Bacteria Rare Urine Mucus Rare Blood Type O POSITIVE Antibody Screen Negative 01/07/18 02:44 Sodium Potassium Chloride Carbon Dioxide Anion Gap BUN Creatinine Creat Clearance w eGFR Random Glucose Calcium Total Bilirubin AST ALT Alkaline Phosphatase Total Protein Albumin Beta HCG, Quant Serum , Qual Positive Urine Color Urine Appearance Urine pH Ur Specific [place] Urine Protein Urine Glucose (UA) Urine Ketones Urine Blood Urine Nitrite Urine Bilirubin Urine Urobilinogen Ur Leukocyte Esterase Urine WBC (Auto) Urine RBC (Auto) Ur Epithelial Cells Urine Bacteria Urine Mucus Blood Type Antibody Screen 01/07/18 02:44 RBC 4.49 MCV 79.9 L MCHC 35.2 RDW 13.3 D MPV 9.6 Neutrophils % 60.1 Lymphocytes % 29.6 D Monocytes % 7.6 Eosinophils % 2.2 D Basophils % 0.5 <RizwanaKeziarosana Pennington - Last Filed: 01/07/18 09:52> Progress Note - Progress Note Progress Note: The patient is a 32 year old 10 week female who presents for evaluation of vaginal bleeding. Lab results are unremarkable. Patient is O positive. The patient is pending a transvaginal US to evaluate further. <Karan Price - Last Filed: 01/07/18 09:25> Medical Decision Making - Medical Decision Making 01/07/18 09:26 US demonstrates a non-viable at 9 weeks consistent with demise as read by our radiologist. The patient is asymptomatic currently and is likely experiencing a miscarriage. We are comfortable discharging the patient home with [facility] follow up. We discussed the results, plan, and return precautions with the patient who voiced understanding and is agreeable with the plan. <Karan Price - Last Filed: 01/07/18 09:25> - Medical Decision Making agree with resident note. signed out from Dr Cuenca pending US demise noted. Rh positive, no rhogam. labs and lytes normal DC with OB followup, bleeding precautions noted 01/07/18 09:52 12 09:52 <Kezia Wagoner - Last Filed: 01/07/18 09:52> *DC/Admit/Observation/Transfer - Discharge Dispostion Decision to Admit order: No <Karan Price - Last Filed: 01/07/18 09:25> <Kezia Wagoner - Last Filed: 01/07/18 09:52> Diagnosis at time of Disposition: Miscarriage - Discharge Dispostion Disposition: HOME Condition at time of disposition: Stable - Referrals Referrals: Tomeka Lu MD [Primary Care Provider] - Lilibeth Hart MD [Certified Nurse Medical Lab Specialist] - - Patient Instructions Printed Discharge Instructions: DI for Miscarriage Additional Instructions: Please return to the ER if you experience concerning or worsening symptoms including worsening difficulty breathing, weakness, or chest pain, vaginal bleeding, abdominal pain. Your lab results were normal here in the ER. Unfortunately, your ultrasound shows a non-viable and it appears that you are experiencing a miscarriage. You will likely continue to experience vaginal bleeding and cramping and you may use tylenol to help manage your symptoms. Please call to schedule a follow up appointment with your [facility] physician tomorrow to discuss your ER visit and further management of your symptoms. - Post Discharge Activity
== END 2018-01-07 09:31 | disposition home or self-care (01) ==
LOC: JER 01:50
DX: O26.891 Other specified pregnancy related conditions, first trimester (principal); Z3A.10 10 weeks gestation of pregnancy; N93.9 Abnormal uterine and vaginal bleeding, unspecified
CPT/HCPCS: 36415; 76817-TC; 80053; 81003; 81015; 84702; 84703; 85025; 86850; 86900; 86901; 87086; 99281-25

== ENCOUNTER 2022-04-22 20:07 | Emergency (ER) | payer OTHER ==
[2022-04-22 20:29] VITALS: BP 106/51; PULSE 93; RESP 18; TEMP 98.1; BMI 45.7
[2022-04-22] MEDS ORDERED: ACETAMINOPHEN 500 MG TABLET (FP) PO ONE (20:54)
[2022-04-22] MEDS ORDERED: KETOROLAC TROMETHAMINE 15 MG/ML VIAL IM ONE (20:55)
[2022-04-22] MEDS ORDERED: KETOROLAC TROMETHAMINE 15 MG/ML VIAL ONE (21:17)
[2022-04-22] MEDS ORDERED: ACETAMINOPHEN 500 MG TABLET (FP) ONE (21:17)
== END 2022-04-22 21:38 | disposition home or self-care (01) ==
LOC: JERFT 20:07 → JER 20:07 → JERFT 21:38
PROC: 3E0233Z Introduction of Anti-inflammatory into Muscle, Percutaneous Approach (ICD-10-PCS; principal; 2022-04-22)
DX: M25.561 Pain in right knee (principal)
CPT/HCPCS: 73562-TC-RT-FY; 99284-25

== ENCOUNTER 2023-08-16 15:10 | Inpatient (IN) | payer OTHER ==
[2023-08-16] MEDS: ELECTROLYTE-148 SOLN 1,000 ML IV SCH (16:00)
[2023-08-16 16:40] VITALS: BMI 52.1
[2023-08-16] MEDS ORDERED: OXYTOCIN 20 UNITS in 0.9% NS 20 UNIT/1,000 ML INFUS.BAG IV ONE (17:15)
[2023-08-16] MEDS: METHYLERGONOVINE MALEATE 0.2 MG/1 ML AMP IM PRN (17:28)
[2023-08-16] MEDS ORDERED: MISOPROSTOL 200 MCG TABLET ONE (17:30)
[2023-08-16] MEDS: MISOPROSTOL 200 MCG TABLET PO ONE (17:32)
[2023-08-16] MEDS ORDERED: ACETAMINOPHEN 325 MG TABLET (FP) PO PRN (18:53)
[2023-08-16] MEDS ORDERED: BISACODYL 10 MG SUPP.RECT RC PRN (18:53)
[2023-08-16] MEDS ORDERED: BENZOCAINE 28 GM HEMORRHOIDAL OINTMENT TP PRN (18:53)
[2023-08-16] MEDS ORDERED: BENZOCAINE 20% 57 GM BOTTLE TP PRN (18:53)
[2023-08-16] MEDS ORDERED: WITCH HAZEL 50% (TUCKS) 40 PAD/JAR PAD TP PRN (18:53)
[2023-08-17] MEDS: OXYTOCIN 20 UNITS in 0.9% NS 20 UNIT/1,000 ML INFUS.BAG IV SCH (07:34)
[2023-08-17 09:35] LABS: BASO % 0.2 % (0-2.0); EOS % 0.8 % (0-4.5); HEMATOCRIT 34.7 % (32.4-45.2); HEMOGLOBIN 11.8 GM/dL (10.7-15.3); LYMPH % 20.1 % (8-40); MCH 27.8 pg (25.7-33.7); MEAN CELL VOLUME 81.8 fl (80-96); MEAN PLT VOLUME 11.1 fl (7.5-11.1); MONO % 8.6 % (3.8-10.2); NEUT % 70.3 % (42.8-82.8); PLATELET COUNT 146 10^3/uL (134-434); RBC 4.24 M/mm3 (3.60-5.2); RDW 16.1 % (11.6-15.6)
[2023-08-17] MEDS: IBUPROFEN 600 MG TABLET (FP) PO PRN (19:05)
[2023-08-17] MEDS ORDERED: SENNOSIDES/DOCUSATE COMBO (SENNA PLUS) TABLET (UD) PO PRN (22:00)
[2023-08-18 11:37] VITALS: BP 109/52; PULSE 63; RESP 16; TEMP 98
== END 2023-08-18 10:35 | disposition home or self-care (01) | DRG 560 ==
LOC: JDEL 15:10 → JLDR 15:45 → J3W 19:54
PROVIDERS: ADMIT Obstetrics & Gynecology; ATTEND Obstetrics & Gynecology
PROC: 10E0XZZ Delivery of Products of Conception, External Approach (ICD-10-PCS; principal; 2023-08-16)
DX: O80 Encounter for full-term uncomplicated delivery (principal); Z3A.39 39 weeks gestation of pregnancy; Z37.0 Single live birth
CPT/HCPCS: 36415; 59409; 71046-TC-FY; 85025